=== PATIENT | female | born 1960 ===

== ENCOUNTER 2018-06-25 15:07 | Emergency (ER) | payer SELFPAY ==
[2018-06-25 15:45] VITALS: BP 154/76; PULSE 88; RESP 17; TEMP 98.3; O2SAT 95
--- NOTE | 2018-06-25 17:36 | ED PDOC ---
Lower Extremity Pain/Injury Chief Complaint (Nursing): Lower Extremity Problem/Injury Past Medical History Vital Signs: Last Vital Signs Temp 98.3 F 06/25/18 15:41 Pulse 88 06/25/18 15:41 Resp 17 06/25/18 15:41 BP 154/76 H 06/25/18 15:41 Pulse Ox 95 06/25/18 15:41 - Medical History PMH: Arthritis - Allergies Allergies/Adverse Reactions: Allergies Allergy/AdvReac Type Severity Reaction Status Date / Time No Known Allergies Allergy Verified 06/25/18 15:45 - ECG O2 Sat by Pulse Oximetry: 95 Medical Decision Making Medical Decision Makin:35 xray reviewed by me: moderate DJD, no acute fracture or dislocations Disposition - Disposition
--- NOTE | 2018-06-25 17:43 | ED PDOC ---
Lower Extremity Pain/Injury Time Seen by Provider: 06/25/18 16:30 Chief Complaint (Nursing): Lower Extremity Problem/Injury Chief Complaint (Provider): Lower Extremity Problem/Injury History Per: Patient History/Exam Limitations: no limitations Onset/Duration Of Symptoms: Days (3X) Current Symptoms Are (Timing): Still Present Severity: Moderate Additional Complaint(s): 58 year old female with a past medical history arthritis presents to the ED with left knee pain onset 3 days ago. Patient states that she was dancing when she began to feel increasing pain with associated swelling. Patient denies tripping, falling, or hitting it anytime. Patient has had this pain for a while due to arthritis, and she had an orthopedist who treated her with cortisone shots for the pain. Patient's last injection was 1X year ago in [place], since then patient has moved to [place] and is now in [place]. Patient does not have a orthopedist or PMD here. Patient denies taking any medications for the pain. Patient states that the pain is constant but worsens with weight bearing and movement. Otherwise: (-) numbness, (-) tingling, (-) new injuries, falls or twisting (-)changes in skin color PMD: None provided Past Medical History Reviewed: Historical Data, Nursing Documentation, Vital Signs Vital Signs: Last Vital Signs Temp 98.3 F 06/25/18 15:41 Pulse 88 06/25/18 15:41 Resp 17 06/25/18 15:41 BP 154/76 H 06/25/18 15:41 Pulse Ox 95 06/25/18 15:41 LISBET Report Viewed: Yes - Medical History PMH: Arthritis - Family History Family History: States: No Known Family Hx - Social History Current smoker - smoking cessation education provided: No Ex-Smoker (has not smoked in the last 12 months): No Alcohol: None Drugs: Denies - Home Medications Home Medications: Ambulatory Orders Medication Instructions Recorded Ibuprofen [Motrin Tab] 600 mg PO Q6 PRN #20 tab 06/25/18 - Allergies Allergies/Adverse Reactions: Allergies Allergy/AdvReac Type Severity Reaction Status Date / Time No Known Allergies Allergy Verified 06/25/18 15:45 Review of Systems ROS Statement: Except As Marked, All Systems Reviewed And Found Negative Musculoskeletal: Positive for: Other (Left knee pain) Neurological: Negative for: Numbness (tingling) Physical Exam - Reviewed Nursing Documentation Reviewed: Yes Vital Signs Reviewed: Yes - Physical Exam Comments: GENERAL APPEARANCE: Patient is awake, alert, oriented x 3, in no obvious discomfort, overweight. SKIN: Warm, dry; (-) cyanosis. LEFT LOWER EXTREMITY: capillary refill less than 2 seconds, Full ROM, flexion of the knee causes pain, tenderness to anterior medial aspect of left knee with mild swelling. (-) erythema, (-) deformity, (-) ligamentous Laxity, (-) Prachi sign. Neurovascular intact CARDIOVASCULAR: (+) 2+ distal pulse. NEUROLOGIC: (+) distal sensation. - ECG O2 Sat by Pulse Oximetry: 95 (RA) Pulse Ox Interpretation: Normal Medical Decision Making Medical Decision Makin:30 Initial Impression: 58 year old female with left knee pain Initial Plan: * XRAY left knee 3 views * motrin 600 mg PO * Reevaluation 17:35 xray reviewed by me: moderate DJD, no acute fracture or dislocations 17:47 on re eval pt is feeling better, FROM of knee with less pain on flexion Pt with history of osteoarthritis and xray showing moderate DJD cristóbal wrap applied by RN, will give ortho f/u Discussed results, diagnosis, treatment, return precautions and f/u with pt who is understanding, in agreement and stable for dc Scribe Attestation: Documented by Cally Alvarenga, acting as a scribe for Marky Gabriel PA-C. Provider Scribe Attestation: All medical record entries made by the Scribe were at my direction and per sonally dictated by me. I have reviewed the chart and agree that the record accurately reflects my personal performance of the history, physical exam, medical decision making, and the department course for this patient. I have also personally directed, reviewed, and agree with the discharge instructions and disposition. Disposition - Clinical Impression Clinical Impression: Osteoarthritis, knee - Patient ED Disposition Is Patient to be Admitted: No Counseled Patient/Family Regarding: Studies Performed, Diagnosis, Need For Followup, Rx Given - Disposition Referrals: [facility] [place] [Outside] Rebekah Henderson MD [Staff Provider] - Disposition: Routine/Home Disposition Time: 17:47 Condition: STABLE Additional Instructions: Return to ED for new or worsening symptoms, fever >100.4, changes in skin color, numbness or tingling, unable to move knee or walk. Follow up with an orthopedist in 5-7 days. Rest, ice and elevate. wear cristóbal wrap for compression and support. Take ibuprofen or tylenol as needed for pain. Prescriptions: Ibuprofen [Motrin Tab] 600 mg PO Q6 PRN #20 tab PRN Reason: Pain, Moderate (4-7) Instructions: Osteoarthritis (DC), Knee Pain (DC) Forms: [employer] (Georgian), [employer] (Greek) Print Language: IRISH - POA Present On Arrival: None Results - Diagnostic Imaging Results Radiology Results Knee X-Ray 06/25/18 16:36 IMPRESSION: Multiple loose intracapsular osseous bodies are suspected. No acute fracture. Mild tricompartmental osteoarthritis.
--- NOTE | 2018-06-25 17:50 | RAD ---
Date of service: 06/25/2018 PROCEDURE: Left Knee Radiographs. HISTORY: Pain. COMPARISON: None. FINDINGS: BONES: No acute fracture. JOINTS: Mild tricompartmental osteoarthritis. Multiple loose corticated osseous densities are seen in the posterior joint capsule, likely loose osseous bodies. No clear donor site demonstrated. JOINT EFFUSION: Very small OTHER FINDINGS: None. IMPRESSION: Multiple loose intracapsular osseous bodies are suspected. No acute fracture. Mild tricompartmental osteoarthritis.
== END 2018-06-25 18:05 | disposition home or self-care (01) ==
LOC: H.ER 15:07
DX: M17.12 Unilateral primary osteoarthritis, left knee (principal)